=== PATIENT | male | born 1960 | race African-American/Black ===

== ENCOUNTER 2022-10-06 10:03 | Emergency (ER) | payer MEDICAID, OTHER ==
[~2022-10-06] VITALS: Ht 165.1 cm; Wt 57.0 kg
[2022-10-06 10:07] VITALS: O2SAT 99
[2022-10-06 10:55] LABS: BASOPHILS % 0.7 % (0.0-2.0); EOSINOPHILS % 5.1 % (0.0-5.0); HEMATOCRIT. 37.4 % (42.0-52.0); HEMOGLOBIN. 12.3 g/dL (14.0-18.0); LYMPHOCYTES % 48.7 % (20.0-50.0); MEAN CORPUSCULAR HEMOGLOBIN 30.2 pg (28.0-32.0); MEAN CORPUSCULAR VOLUME 91.7 fL (80.0-94.0); MEAN PLATELET VOLUME 7.2 fl (7.4-10.4); MONOCYTES % 7.8 % (2.0-8.0); NEUTROPHILS % 37.7 % (40.0-76.0); PLATELET 294 x1000/uL (130-400); RED BLOOD CELL COUNT 4.08 mill/uL (4.7-6.1); RED CELL DISTRIBUTION WIDTH 14.1 % (11.6-14.6); WHITE BLOOD COUNT 2.9 x1000/uL (4.5-11.0)
[2022-10-06 11:16] LABS: CHLORIDE 110 mEq/L (98-107); INDEX HEMOLYSI 1 (1-3); INDEX ICTERIC 1 (1-4); INDEX LIPEMIC 1 (1-3); POTASSIUM 3.9 mEq/L (3.5-5.1); SODIUM 141 mEq/L (136-145)
[2022-10-06 11:27] LABS: ALANINE AMINOTRANSFERASE 30 IU/L (13-61); ASPARTATE AMINOTRANSFERASE 28 IU/L (15-37); BILIRUBIN TOTAL 0.4 mg/dL (0.1-1.0); CALCIUM 8.5 mg/dL (8.5-10.1); CARBON DIOXIDE 25 mEq/L (21-32); CREATININE 0.8 mg/dL (0.6-1.3); GLUCOSE 134 mg/dL (70-105); NT PRO B-TYPE NATRIURETIC PEP 2725 pg/mL (5-125); PROTEIN TOTAL 6.8 g/dL (6.0-8.3); TROPONIN I HIGH SENSITIVITY 51 ng/L (<78); UREA NITROGEN BLOOD 12 mg/dL (7-21)
[2022-10-06] MEDS ORDERED: IOHEXOL-350 100 ML BOTTLE ONE (17:02)
[2022-10-06 17:33] VITALS: BP 105/75; PULSE 69; RESP 16; TEMP 98.2
== END 2022-10-06 18:36 | disposition left against medical advice (07) ==
LOC: ER 10:03 → CANBEDREQ 19:54
DX: R07.89 Other chest pain (principal); R55 Syncope and collapse; J43.9 Emphysema, unspecified; F17.200 Nicotine dependence, unspecified, uncomplicated
CPT/HCPCS: 80053; 83880; 83605; 85025; 84484; 36415; 71045; 71275; 99285; Q9967; Z7610